=== PATIENT | female | born 1940 | race Caucasian/White ===

== ENCOUNTER → 2019-03-25 | Outpatient (CLI) | payer MEDICARE ==
[~2019-03-25] MED LIST: AMIODARONE HCL200 MG PO; ASPIR 8181 MG PO; DIGOXIN125 MCG PO; IOPAMIDOL 370 MG/ML 200 ML INFUS..BTL INJ ONE; LASIX20 MG PO; LISINOPRIL5 MG PO; METOPROLOL SUCC25 MG PO; METOPROLOL TART25 MG PO; PRADAXA150 MG PO; SODIUM CHLORIDE 0.9% 50ML 50 ML ONE
[2019-03-25 16:26] LABS: BLOOD UREA NITROGEN 12 mg/dL (7-26); BUN/CREATININE RATIO 16 (6-25); CREATININE, SERUM 0.77 mg/dL (0.57-1.11); EST GLOMERULAR FILTRATION RATE > 60 ML/MIN (60-)
--- NOTE | 2019-03-25 17:52 | Diagnostic Imaging Report ---
EXAMINATION: CT of the abdomen and pelvis with contrast. TECHNIQUE: Spiral CT images of the abdomen and pelvis were performed from the lung bases to the lesser trochanters after the intravenous administration of 100 cc of Isovue 370. Coronal and sagittal reformatted images were obtained. COMPARISON: None. CLINICAL HISTORY:78-year-old female right upper quadrant pain for 3 weeks, fever, history of prior bowel obstruction DISCUSSION: ABDOMEN/PELVIS: LOWER THORAX:Unremarkable. HEPATOBILIARY: No focal hepatic lesions. Mild dilatation of the common hepatic and extrahepatic, bile duct with soft tissue density within the lumen just proximal to the pancreatic head best seen on the coronal series (series 301, image 52). GALLBLADDER: No radio-opaque stones or sludge. No wall thickening. SPLEEN: No splenomegaly. PANCREAS: No focal masses or ductal dilatation. ADRENALS: No adrenal nodules. KIDNEYS/URETERS: No hydronephrosis, stones, or solid mass lesions. PELVIC ORGANS/BLADDER: The bladder is normal. PERITONEUM/RETROPERITONEUM: No free air or fluid. LYMPH NODES: No intra-abdominal, retroperitoneal, pelvic or inguinal lymphadenopathy. VESSELS: The celiac trunk,superior and inferior mesenteric and bilateral renal arteries are patent The portal, superior mesenteric and splenic veins are patent. GI TRACT: Colonic diverticulosis. No obstruction. BONES AND SOFT TISSUE: No bony destructive lesions. No soft tissue abnormalities. Mild degenerative changes of the spine IMPRESSION: Mild dilatation of the common hepatic and extrahepatic common bile ducts with soft tissue density within the lumen of the distal extrahepatic common bile duct. This may represent partially obstructing stone/sludge, stricture, or mass. MRCP is recommended for further evaluation if available, otherwise consider dedicated ultrasound, although this may be of limited value. Signed by: Henrique Evans MD on 03/25/2019 5:48 PM
== END ==
LOC: CT 15:33
PROVIDERS: ATTEND Family Medicine
DX: R10.11 Right upper quadrant pain (principal); Z87.19 Personal history of other diseases of the digestive system
CPT/HCPCS: 36415; 74177; 82565; 84520; Q9967

== ENCOUNTER → 2019-03-28 | Outpatient (CLI) | payer MEDICARE ==
[~2019-03-28] MED LIST changes: +GADOBENATE DIMEGLUMINE 1 ML IV ONE; -IOPAMIDOL 370 MG/ML 200 ML INFUS..BTL INJ ONE; -SODIUM CHLORIDE 0.9% 50ML 50 ML ONE
== END ==
LOC: MRI 13:11
PROVIDERS: ATTEND Internal Medicine Gastroenterology
DX: K82.9 Disease of gallbladder, unspecified (principal)
CPT/HCPCS: 74183